=== PATIENT | female | born 1960 | race Caucasian/White ===

== ENCOUNTER 2022-08-19 07:26 | Outpatient (CLI) | payer OTHER ==
[2022-08-19] MEDS ORDERED: Iopamidol 370 76% 100 ML VIAL ONE (10:13)
[2022-08-19] MEDS ORDERED: Magnevist 469MG/ML 20 ML VIAL ONE (10:43)
== END 2022-08-19 07:27 | disposition home or self-care (01) ==
LOC: CT 07:26
PROVIDERS: ATTEND Radiology Radiation Oncology
DX: C49.22 Malignant neoplasm of connective and soft tissue of left lower limb, including hip (principal); R91.1 Solitary pulmonary nodule; K46.9 Unspecified abdominal hernia without obstruction or gangrene
CPT/HCPCS: 71260; 82565

== ENCOUNTER 2022-10-20 09:07 | Outpatient (CLI) | payer OTHER | END 2022-10-20 09:08 | disposition home or self-care (01) | LOC: BICMRI 09:07 | PROVIDERS: ATTEND Surgery | DX: M47.816 Spondylosis without myelopathy or radiculopathy, lumbar region (principal); M47.817 Spondylosis without myelopathy or radiculopathy, lumbosacral region; M48.061 Spinal stenosis, lumbar region without neurogenic claudication; M47.815 Spondylosis without myelopathy or radiculopathy, thoracolumbar region | CPT/HCPCS: 72148 ==